=== PATIENT | female | born 1985 | race Caucasian/White ===

== ENCOUNTER → 2020-04-10 | Outpatient (CLI) | payer OTHER ==
[~2020-04-10] MED LIST: ASPIRIN 325MG325 MG PO; CYCLOBENZAPRINE10 MG PO; FLEXERIL PO; IBU800 MG PO; KEFLEX500 MG PO; NORCO 10-325 T1 EACH PO; VIT C PO; VIT D PO; VITAMIN C500 M1 PO; VITAMIN D PO
== END ==
LOC: KOH-I 04-07 08:00
DX: S92.902K Unspecified fracture of left foot, subsequent encounter for fracture with nonunion (principal); S93.321A Subluxation of tarsometatarsal joint of right foot, initial encounter; Z98.890 Other specified postprocedural states; X58.XXXD Exposure to other specified factors, subsequent encounter
CPT/HCPCS: 73700

== ENCOUNTER → 2020-07-18 | Day surgery (SDC) | payer OTHER | END | disposition home or self-care (01) | LOC: OR 09:43 | DX: M20.32 Hallux varus (acquired), left foot (principal); F17.210 Nicotine dependence, cigarettes, uncomplicated; Z88.1 Allergy status to other antibiotic agents | CPT/HCPCS: 73620; 73630; 76000; C1713; J1100; J1885; J2250; J2405; J2704; J2795; J3010; J3370; J7120; Q4133 ==

== ENCOUNTER → 2020-08-05 | Outpatient (CLI) | payer OTHER | LOC: KOH-I 14:11 | DX: M20.32 Hallux varus (acquired), left foot (principal); Z47.89 Encounter for other orthopedic aftercare | CPT/HCPCS: 73630 ==

== ENCOUNTER → 2020-08-19 | Outpatient (CLI) | payer OTHER | LOC: KOH-I 14:51 | DX: M79.672 Pain in left foot (principal) | CPT/HCPCS: 73630 ==

== ENCOUNTER → 2020-09-09 | Outpatient (CLI) | payer OTHER | LOC: KOH-I 15:41 | DX: M79.672 Pain in left foot (principal); Z98.890 Other specified postprocedural states | CPT/HCPCS: 73630 ==

== ENCOUNTER → 2020-10-14 | Outpatient (CLI) | payer OTHER | LOC: KOH-I 14:24 | DX: M79.672 Pain in left foot (principal) | CPT/HCPCS: 73630 ==

== ENCOUNTER → 2020-11-13 | Outpatient (CLI) | payer OTHER | LOC: KOH-I 11:21 | DX: M79.672 Pain in left foot (principal); Z98.890 Other specified postprocedural states | CPT/HCPCS: 73630 ==

== ENCOUNTER → 2021-02-03 | Outpatient (CLI) | payer OTHER ==
[2021-02-03 12:11] LABS: HEMOGLOBIN 16.5 gm/dl (12.3-15.3); RED BLOOD COUNT 5.51 M/UL (4.00-5.10); WHITE BLOOD COUNT 11.4 K/UL (4.5-11.0)
[2021-02-03 12:30] LABS: BUN/CREATININE RATIO 9 (0-10)
== END ==
LOC: OPSV2 11:00
PROVIDERS: Podiatrist Foot & Ankle Surgery
DX: Z01.812 Encounter for preprocedural laboratory examination (principal); M20.32 Hallux varus (acquired), left foot
CPT/HCPCS: 36415; 80048; 85027

== ENCOUNTER → 2021-02-06 | Day surgery (SDC) | payer OTHER ==
[~2021-02-06] VITALS: Ht 167.6 cm; Wt 73.5 kg
== END | disposition home or self-care (01) ==
LOC: OR 05:57
DX: M20.32 Hallux varus (acquired), left foot (principal); M24.575 Contracture, left foot; M19.072 Primary osteoarthritis, left ankle and foot; Z20.822 Contact with and (suspected) exposure to COVID-19
CPT/HCPCS: 73630; 73660; 76000; C1713; C1762; C1769; J1100; J1170; J1885; J2001; J2250; J2405; J2704; J2795; J3010; J3370; J7030; J7120

== ENCOUNTER → 2021-02-12 | Outpatient (CLI) | payer OTHER | LOC: KOH-I 15:27 | DX: M79.672 Pain in left foot (principal) | CPT/HCPCS: 73630 ==

== ENCOUNTER → 2021-03-12 | Outpatient (CLI) | payer OTHER | LOC: KOH-I 15:27 | DX: M79.672 Pain in left foot (principal) | CPT/HCPCS: 73630 ==

== ENCOUNTER → 2021-04-07 | Outpatient (CLI) | payer OTHER | LOC: KOH-I 14:24 | DX: M79.672 Pain in left foot (principal); Z98.1 Arthrodesis status | CPT/HCPCS: 73630 ==